=== PATIENT | female | born 2000 | race African-American/Black ===

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

== ENCOUNTER 2020-07-01 09:24 | Emergency (ER) | payer MEDICAID ==
[~2020-07-01] VITALS: Ht 160 cm; Wt 54.4 kg
[2020-07-01 09:45] VITALS: BP 147/92
== END 2020-07-01 11:16 | disposition home or self-care (01) ==
LOC: ER 09:24
DX: J02.9 Acute pharyngitis, unspecified (principal)
CPT/HCPCS: 71045